=== PATIENT | female | born 1965 | race African-American/Black ===

== ENCOUNTER → 2022-04-01 15:16 | Outpatient (CLI) | payer OTHER, SELFPAY ==
--- NOTE | ~2022-04-01 | XR_ITS ---
EXAMINATION: HAND-BEATRIS ARTHRITIS 3+VIEWS DATE: 04/01/2022 16:11 INDICATION: Unspecified osteoarthritis at unspecified site. Bilateral hand pain, right greater than l eft as well as stiffness, weakness and swelling. TECHNIQUE: Posteroanterior, lateral, and oblique views of the left and of the right hands as well as a ballcatchers view of both hands were obtained. COMPARISON: None. FINDINGS: Bone alignment is normal at the bilateral hands and wrists. No fracture. Mild osteoarthritis at the b ilateral distal radioulnar joints. Minimal nonuniform joint space narrowing and tiny marginal osteoph ytes at a few of the interphalangeal joints consistent with minimal to mild osteoarthritis.. There ap pears be small erosions at the radial aspect of the base of the left second and third proximal phalan ges and at the ulnar aspect of the base of the right fourth proximal phalanges. Soft tissues are unre markable. IMPRESSION: 1. Subtle periarticular erosions at the bases of the left second and third and right fourth proximal phalanges suggesting a possible inflammatory arthritis. 2. Minimal to mild osteoarthritis at the bilateral distal radioulnar joints and multiple interphalang eal joints. Reviewed, dictated and finalized at location A. IMPRESSION: 1. Subtle periarticular erosions at the bases of the left second and third and right fourth proximal phalanges suggesting a possible inflammatory arthritis. 2. Minimal to mild osteoarthritis at the bilateral distal radioulnar joints and multiple interphalangeal joints.
--- NOTE | ~2022-04-01 | XR_ITS ---
EXAMINATION: XR foot LT standing 2V DATE: 04/01/2022 16:10 INDICATION: Other specified abnormal immunologic findings. Bilateral foot pain with walking and climb ing stairs. TECHNIQUE: 1. Standing dorsoplantar, two oblique and lateral views of the left foot were obtained. 2. Standing dorsoplantar, two oblique and lateral views of the right foot were obtained. COMPARISON: None. FINDINGS: Bone alignment is normal at both feet. No fracture. Minimal to mild polyarticular osteoarthritis invo lving several of the tarsal metatarsal, interphalangeal and first metatarsophalangeal joints of both feet. Small chronic erosion with corticated margins at the lateral base of the right first proximal p halanx. Small left plantar calcaneal spur and small right Achilles calcaneal spur. IMPRESSION: 1. Small chronic erosion at the lateral base of the right first proximal phalanx which could be seen with either an inflammatory or crystalline arthritis. 2. Minimal to mild polyarticular osteoarthritis in the bilateral mid and forefeet. Reviewed, dictated and finalized at location A. IMPRESSION: 1. Small chronic erosion at the lateral base of the right first proximal phalan x which could be seen with either an inflammatory or crystalline arthritis. 2. Minimal to mild polyarticular osteoarthritis in the bilateral mid and forefe et.
--- NOTE | ~2022-04-01 | XR_ITS ---
EXAMINATION: XR knee LT min 4V, XR knee RT min 4V DATE: 04/01/2022 16:11 INDICATION: Other specified abnormal immunologic findings. Need cramping and pain with walking and cl imbing. Infrapatellar swelling. TECHNIQUE: 1. Anteroposterior, 2 oblique and crosstable lateral views of the left knee were obtained 2. Anteroposterior, 2 oblique and crosstable lateral views of the right knee were obtained COMPARISON: None. FINDINGS: Alignment is normal at both knees. No fracture. Joint spaces appear normal on nonweightbearing imagin g. No erosions or osteophytosis. Soft tissues are unremarkable with no joint effusions. IMPRESSION: 1. Negative bilateral knee radiographs. Reviewed, dictated and finalized at location A. IMPRESSION: 1. Negative bilateral knee radiographs.
--- NOTE | ~2022-04-01 | XR_ITS ---
EXAMINATION: XR foot LT standing 2V DATE: 04/01/2022 16:10 INDICATION: Other specified abnormal immunologic findings. Bilateral foot pain with walking and climb ing stairs. TECHNIQUE: 1. Standing dorsoplantar, two oblique and lateral views of the left foot were obtained. 2. Standing dorsoplantar, two oblique and lateral views of the right foot were obtained. COMPARISON: None. FINDINGS: Bone alignment is normal at both feet. No fracture. Minimal to mild polyarticular osteoarthritis invo lving several of the tarsal metatarsal, interphalangeal and first metatarsophalangeal joints of both feet. Small chronic erosion with corticated margins at the lateral base of the right first proximal p halanx. Small left plantar calcaneal spur and small right Achilles calcaneal spur. IMPRESSION: 1. Small chronic erosion at the lateral base of the right first proximal phalanx which could be seen with either an inflammatory or crystalline arthritis. 2. Minimal to mild polyarticular osteoarthritis in the bilateral mid and forefeet. Reviewed, dictated and finalized at location A. IMPRESSION: 1. Small chronic erosion at the lateral base of the right first proximal phalan x which could be seen with either an inflammatory or crystalline arthritis. 2. Minimal to mild polyarticular osteoarthritis in the bilateral mid and forefe et.
== END ==
PROVIDERS: PCP Family Medicine; Visit Provider Internal Medicine
DX: M15.9 Polyosteoarthritis, unspecified (principal); G56.03 Carpal tunnel syndrome, bilateral upper limbs; R76.8 Other specified abnormal immunological findings in serum
CPT/HCPCS: 73130; 73564; 73620

== ENCOUNTER 2023-02-19 14:41 | Outpatient (CLI) | payer OTHER, SELFPAY ==
--- NOTE | ~2023-02-19 | MR_ITS ---
EXAMINATION: MR hand LT wo/w con DATE: 02/19/2023 17:40 INDICATION: Rheumatoid arthritis without rheumatoid factor. TECHNIQUE: Magnetic resonance imaging (MRI) of the left hand was performed without and with 12 mL Mul tiHance intravenous contrast. COMPARISON: Left hand radiographs 04/01/22 FINDINGS: Bone alignment is normal. No fracture. There are no erosions of bone. There is moderate ost eoarthritis between capitate and trapezoid with subchondral cysts. The flexor and extensor tendons ar e normal. There is synovial thickening in the fourth extensor compartment. IMPRESSION: 1. Synovitis involving the fourth extensor tendon compartment. Reviewed, dictated and finalized at location E.
--- NOTE | ~2023-02-19 | MR_ITS ---
EXAMINATION: MR hand RT wo/w con DATE: 02/19/2023 17:40 INDICATION: Rheumatoid arthritis without rheumatoid factor. TECHNIQUE: Magnetic resonance imaging (MRI) of the right hand was performed without and with 20 mL Mu ltiHance intravenous contrast. COMPARISON: Right hand radiographs 04/01/2022 FINDINGS: Bone alignment is normal. No fracture. A 5 mm lesion in head of third metacarpal is likely an intraosseous ganglion. There is moderate osteoarthritis between trapezoid and capitate. There are no erosions of bone. The flexor and extensor tendons are normal. There is synovial thickening around the flexor tendons of the second and third digits. There is synovial thickening around the extensor c arpi ulnaris tendon. IMPRESSION: 1. Synovitis around the extensor carpi ulnaris tendon and the flexor tendons of the second and third digits. Reviewed, dictated and finalized at location E.
== END 2023-02-19 14:42 | disposition home or self-care (01) ==
PROVIDERS: PCP Family Medicine; Visit Provider Internal Medicine
DX: M06.09 Rheumatoid arthritis without rheumatoid factor, multiple sites (principal); S63.8X1A Sprain of other part of right wrist and hand, initial encounter; S63.8X2A Sprain of other part of left wrist and hand, initial encounter; X58.XXXA Exposure to other specified factors, initial encounter
CPT/HCPCS: 73220; A9577